=== PATIENT | female | born 1975 ===

== ENCOUNTER 2024-12-07 05:20 | Day surgery (SDC) | payer OTHER ==
[2024-12-07] MEDS ORDERED: MIDAZOLAM HCL/PF 5 MG/ML VIAL IV ONE (14:45)
[2024-12-07] MEDS ORDERED: DIPHENHYDRAMINE HCL 50 MG/ML VIAL 1ML IV ONE (14:45)
[2024-12-07] MEDS ORDERED: FentaNYL CITRATE/PF 50MCG/ML 2ML VIAL IJ ONE (14:45)
== END 2024-12-07 10:30 | disposition home or self-care (01) ==
LOC: AMB-ENDOS 05:20
PROVIDERS: ATTEND Surgery
DX: K21.9 Gastro-esophageal reflux disease without esophagitis (principal); K29.00 Acute gastritis without bleeding; K44.9 Diaphragmatic hernia without obstruction or gangrene; R10.13 Epigastric pain; E66.09 Other obesity due to excess calories